=== PATIENT | female | born 1955 | race Caucasian/White ===

== ENCOUNTER 2020-05-14 03:27 | Inpatient (IN) ==
[2020-05-14 02:55] LABS: Hemoglobin 13.1 g/dL (11.5-15.4); Mean Corpuscular HGB Conc 32.8 g/dL (31.6-35.5); Mean Corpuscular Hemoglobin 30.2 pg (28.0-33.3); Mean Corpuscular Volume 92.2 fL (83.0-100.0); Mean Platelet Volume 12.6 fL (9.4-12.4); Platelet Count 209 K/mcL (140-400); Red Blood Count 4.34 M/mcL (3.82-4.97); White Blood Count 12.4 K/mcL (4.3-11.1)
[2020-05-14 03:00] LABS: INR 1.2; Prothrombin Time 13.8 Seconds (9.4-12.1)
[2020-05-14 03:15] LABS: Calcium 8.5 mg/dL (8.6-10.3); Magnesium 1.5 mg/dL (1.6-2.6); Phosphorous 3.8 mg/dL (2.7-4.5); Potassium 3.5 mEq/L (3.5-5.1); Troponin I 3.26 ng/mL (< 0.04)
[~2020-05-14 03:27] MED LIST: *HR* Heparin 5,000 UNIT/ML VIAL IVP ONE; *HR* Heparin 5,000 UNIT/ML VIAL IVP PRN; Acetaminophen 325 MG TABLET PO PRN; Ondansetron 4 MG/2 ML VIAL IVP PRN
[2020-05-14] MEDS ORDERED: *HR* Dextrose 50 % in Water (Vial) 50 ML VIAL IVP PRN (03:29)
[2020-05-14] MEDS ORDERED: Dextrose Gel 15 GM/37.5 ML TUBE PO PRN ×2 (03:29)
[2020-05-14] MEDS ORDERED: D5% in Water 1,000 ML IVC PRN (03:29)
[2020-05-14] MEDS ORDERED: Perflutren Lipid Microsphere 1.3 ML in 0.9 % Sodium Chloride 8.7 ML IVP PRN ×2 (03:39→12:03)
[2020-05-14 03:42] LABS: Albumin 3.6 g/dL (3.5-5.7); Albumin/Globulin Ratio 1.3 (1.1-2.2); Bilirubin,Direct 0.1 mg/dL (0.0-0.2); Bilirubin,Indirect 0.3 mg/dL (0.0-1.0); Bilirubin,Total 0.4 mg/dL (0.3-1.0); Globulin 2.7 g/dL (2.4-3.5); Total Protein 6.3 g/dL (6.4-8.9)
[2020-05-14] MEDS: Heparin 25,000UNIT/250ML 1/2NS 25,000 UNIT/250 ML IV.SOLN IVC SCH (04:07)
[2020-05-14 06:56] LABS: Chol/HDL Ratio 2.4 (0-4.9)
[2020-05-14 07:00] LABS: Estimated Average Glucose 134 mg/dl; Hemoglobin A1C 6.3 %
[2020-05-14] MEDS: Aspirin 81 MG TAB.CHEW PO SCH (07:49)
[2020-05-14] MEDS: Insulin LISPRO 300 UNITS/3 ML VIAL SUBQ SCH ×3 (07:49→17:18)
[2020-05-14 17:27] LABS: Potassium 3.9 mEq/L (3.5-5.1)
[2020-05-14] MEDS: *HR* Heparin 5,000 UNIT/ML VIAL IVP PRN (20:20)
[2020-05-15 02:40] LABS: Calcium 8.4 mg/dL (8.6-10.3); Potassium 3.8 mEq/L (3.5-5.1)
[2020-05-15 02:45] LABS: Troponin I 1.67 ng/mL (< 0.04)
[2020-05-15] MEDS: Insulin LISPRO 300 UNITS/3 ML VIAL SUBQ SCH ×3 (07:43→17:03)
[2020-05-15] MEDS: Aspirin 81 MG TAB.CHEW PO SCH (07:43)
[2020-05-15] MEDS: *HR* Heparin 5,000 UNIT/ML VIAL IVP PRN ×2 (10:13→22:13)
[2020-05-15] MEDS ORDERED: Nitroglycerin 1,000 MCG/10 ML VIAL IV ONE (10:24)
[2020-05-15] MEDS ORDERED: 0.9 % Sodium Chloride 1,000 ML ONE (10:24)
[2020-05-15] MEDS ORDERED: Heparin 1,000 UNITS/500 mL 500 ML ONE (10:24)
[2020-05-15] MEDS ORDERED: *HR* Heparin 10,000 UNIT/10 ML VIAL ONE (10:24)
[2020-05-15] MEDS ORDERED: ISOVUE-370 200 ML INFUS..BTL ONE (10:24)
[2020-05-15] MEDS: amLODIPine 5 MG TABLET PO SCH (10:26)
[2020-05-15] MEDS ORDERED: *HR* FentaNYL (PF) 100 MCG/2 ML VIAL ONE (10:41)
[2020-05-15] MEDS ORDERED: *HR* Midazolam HCl 2 MG/2 ML VIAL ONE (10:42)
[2020-05-15] MEDS: Heparin 25,000UNIT/250ML 1/2NS 25,000 UNIT/250 ML IV.SOLN IVC SCH (15:51)
[2020-05-15] MEDS: Nicotine 14 MG PATCH.TD24 TD SCH (15:52)
[2020-05-15] MEDS ORDERED: carvediloL 6.25 MG TABLET PO SCH (17:00)
[2020-05-15] MEDS: carvediloL 6.25 MG TABLET PO SCH (17:04)
[2020-05-16 01:55] LABS: Basophils # 0.1 K/mcL (0.0-0.2); Basophils % 0.5 %; Eosinophils # 0.2 K/mcL (0.0-0.6); Eosinophils % 2.4 %; Hematocrit 31.2 % (35.3-44.9); Hemoglobin 10.2 g/dL (11.5-15.4); Immature Granulocytes % 0.1 % (0-4); Immature Platelets 9.8 % (1.1-6.1); Lymphocytes # 2.5 K/mcL (0.6-4.6); Lymphocytes % 26.2 %; Mean Corpuscular HGB Conc 32.7 g/dL (31.6-35.5); Mean Corpuscular Hemoglobin 30.5 pg (28.0-33.3); Mean Corpuscular Volume 93.4 fL (83.0-100.0); Mean Platelet Volume 13.4 fL (9.4-12.4); Monocytes # 0.7 K/mcL (0.0-1.3); Monocytes % 7.7 %; Platelet Count 175 K/mcL (140-400); Red Blood Count 3.34 M/mcL (3.82-4.97); Segmented Neutrophils % 63.1 %; White Blood Count 9.5 K/mcL (4.3-11.1)
[2020-05-16 01:56] LABS: INR 1.1; Prothrombin Time 12.9 Seconds (9.4-12.1)
[2020-05-16 02:13] LABS: Calcium 8.6 mg/dL (8.6-10.3); Potassium 3.6 mEq/L (3.5-5.1)
[2020-05-16] MEDS: Nicotine 14 MG PATCH.TD24 TD SCH (07:25)
[2020-05-16] MEDS: Aspirin 81 MG TAB.CHEW PO SCH (07:26)
[2020-05-16] MEDS: Insulin LISPRO 300 UNITS/3 ML VIAL SUBQ SCH ×3 (07:26→16:30)
[2020-05-16] MEDS: amLODIPine 5 MG TABLET PO SCH (07:26)
[2020-05-16] MEDS: carvediloL 6.25 MG TABLET PO SCH ×2 (07:26→16:32)
[2020-05-16] MEDS ORDERED: Furosemide 40 MG/4 ML VIAL IVP ONE (07:54)
[2020-05-16] MEDS ORDERED: Gadolinium Contrast Agent (WT Based) IV PRN (09:28)
[2020-05-16] MEDS ORDERED: lisinopriL 20 MG TABLET PO SCH (10:30)
[2020-05-16] MEDS: Chlorhexidine Rinse 15 ML MOUTHWASH MM SCH (20:40)
[2020-05-17 01:14] LABS: Hematocrit 32.2 % (35.3-44.9); Hemoglobin 10.5 g/dL (11.5-15.4); Mean Corpuscular HGB Conc 32.6 g/dL (31.6-35.5); Mean Corpuscular Hemoglobin 30.4 pg (28.0-33.3); Mean Corpuscular Volume 93.3 fL (83.0-100.0); Mean Platelet Volume 12.5 fL (9.4-12.4); Platelet Count 162 K/mcL (140-400); Red Blood Count 3.45 M/mcL (3.82-4.97); Red Cell Distribution Width 12.2 % (11.5-14.5); White Blood Count 8.1 K/mcL (4.3-11.1)
[2020-05-17 01:37] LABS: Calcium 8.5 mg/dL (8.6-10.3); Potassium 3.7 mEq/L (3.5-5.1)
[2020-05-17] MEDS ORDERED: CeFAZolin Syr 2,000MG/20 ML 2,000 MG/20 ML SYRINGE IVPB ONE (07:00)
[2020-05-17] MEDS ORDERED: Insulin Human Regular 100 UNIT in 0.9 % Sodium Chloride 100 ML IV PRN (07:45)
[2020-05-17] MEDS ORDERED: Dextrose 50 % in Water (Vial) 30 ML, Sodium Bicarbonate 20 MEQ, Potassium Chloride 15 M... TH ONE (07:45)
[2020-05-17] MEDS ORDERED: Norepinephrine 4 MG in 0.9 % Sodium Chloride 250 ML IVC PRN (07:45)
[2020-05-17] MEDS ORDERED: Heparin 15,000 UNIT in 0.9 % Sodium Chloride 500 ML IV ONE (07:45)
[2020-05-17] MEDS ORDERED: Dextrose 50 % in Water (Vial) 30 ML, Sodium Bicarbonate 20 MEQ, Lidocaine 1% 5 ML, Insu... TH ONE ×3 (07:45)
[2020-05-17] MEDS: Chlorhexidine Rinse 15 ML MOUTHWASH MM SCH (07:50)
[2020-05-17] MEDS: Insulin LISPRO 300 UNITS/3 ML VIAL SUBQ SCH ×3 (07:50→16:26)
[2020-05-17] MEDS: Aspirin 81 MG TAB.CHEW PO SCH (08:03)
[2020-05-17] MEDS: Nicotine 14 MG PATCH.TD24 TD SCH (08:03)
[2020-05-17] MEDS ORDERED: SODIUM ZIRCONIUM CYCLOSILICATE 5 GM POWD.PACK PO ONE (13:36)
[2020-05-17] MEDS: *HR* Metoprolol 5 MG/5 ML VIAL IVP PRN (19:59)
[2020-05-17] MEDS ORDERED: *HR* Metoprolol 5 MG/5 ML VIAL IVP ONE (23:59)
[2020-05-18 03:24] LABS: Hematocrit 35.2 % (35.3-44.9); Hemoglobin 11.4 g/dL (11.5-15.4); Mean Corpuscular HGB Conc 32.4 g/dL (31.6-35.5); Mean Corpuscular Hemoglobin 29.7 pg (28.0-33.3); Mean Corpuscular Volume 91.7 fL (83.0-100.0); Platelet Count 189 K/mcL (140-400); Red Blood Count 3.84 M/mcL (3.82-4.97); Red Cell Distribution Width 12.2 % (11.5-14.5); White Blood Count 8.2 K/mcL (4.3-11.1)
[2020-05-18 03:43] LABS: Calcium 8.5 mg/dL (8.6-10.3); Potassium 3.9 mEq/L (3.5-5.1)
[2020-05-18] MEDS: *HR* Metoprolol 5 MG/5 ML VIAL IVP PRN ×2 (04:32→11:37)
[2020-05-18] MEDS: Insulin LISPRO 300 UNITS/3 ML VIAL SUBQ SCH ×3 (07:20→16:31)
[2020-05-18] MEDS: Nicotine 14 MG PATCH.TD24 TD SCH (07:27)
[2020-05-18] MEDS: Aspirin 81 MG TAB.CHEW PO SCH (07:27)
[2020-05-18] MEDS ORDERED: *HR* Metoprolol 5 MG/5 ML VIAL IVP ONE (13:24)
[2020-05-18] MEDS: lisinopriL 20 MG TABLET PO SCH (14:58)
[2020-05-18] MEDS ORDERED: carvediloL 6.25 MG TABLET PO SCH (15:00)
[2020-05-18] MEDS: Isosorbide MONOnitrate (24 HR) 30 MG TAB.ER.24H PO SCH (16:31)
[2020-05-18] MEDS: Spironolactone 25 MG TABLET PO SCH (16:31)
[2020-05-18] MEDS: carvediloL 6.25 MG TABLET PO SCH (20:22)
[2020-05-18] MEDS: Apixaban 5 MG TABLET PO SCH (20:22)
[2020-05-19 02:11] LABS: Basophils # 0.1 K/mcL (0.0-0.2); Basophils % 0.6 %; Eosinophils # 0.2 K/mcL (0.0-0.6); Eosinophils % 2.8 %; Hematocrit 33.1 % (35.3-44.9); Hemoglobin 10.7 g/dL (11.5-15.4); Immature Granulocytes % 0.4 % (0-4); Lymphocytes # 2.5 K/mcL (0.6-4.6); Lymphocytes % 31.4 %; Mean Corpuscular HGB Conc 32.3 g/dL (31.6-35.5); Mean Corpuscular Hemoglobin 30.2 pg (28.0-33.3); Mean Corpuscular Volume 93.5 fL (83.0-100.0); Mean Platelet Volume 12.7 fL (9.4-12.4); Monocytes # 0.7 K/mcL (0.0-1.3); Monocytes % 8.7 %; Neutrophils # 4.5 K/mcL (1.6-8.9); Platelet Count 190 K/mcL (140-400); Red Blood Count 3.54 M/mcL (3.82-4.97); Red Cell Distribution Width 12.1 % (11.5-14.5); Segmented Neutrophils % 56.1 %; White Blood Count 7.9 K/mcL (4.3-11.1)
[2020-05-19 02:30] LABS: Calcium 8.4 mg/dL (8.6-10.3); Magnesium 1.7 mg/dL (1.6-2.6); Potassium 4.1 mEq/L (3.5-5.1)
[2020-05-19] MEDS: Isosorbide MONOnitrate (24 HR) 30 MG TAB.ER.24H PO SCH (07:28)
[2020-05-19] MEDS: lisinopriL 20 MG TABLET PO SCH (07:28)
[2020-05-19] MEDS: Apixaban 5 MG TABLET PO SCH ×2 (07:28→19:31)
[2020-05-19] MEDS: Nicotine 14 MG PATCH.TD24 TD SCH (07:28)
[2020-05-19] MEDS: Insulin LISPRO 300 UNITS/3 ML VIAL SUBQ SCH ×3 (07:29→16:34)
[2020-05-19] MEDS: carvediloL 6.25 MG TABLET PO SCH ×2 (07:30→19:32)
[2020-05-19] MEDS: Spironolactone 25 MG TABLET PO SCH (07:30)
[2020-05-19] MEDS ORDERED: lisinopriL 10 MG TABLET PO ONE (16:08)
[2020-05-19 17:38] LABS: Influenza A PCR Negative (Negative); Influenza B PCR Negative (Negative); Resp. Syncytial Virus PCR Negative (Negative); SARS-CoV-2 by PCR (In House) Negative (Negative)
[2020-05-20 01:07] LABS: Basophils # 0.1 K/mcL (0.0-0.2); Basophils % 0.7 %; Eosinophils # 0.3 K/mcL (0.0-0.6); Eosinophils % 2.7 %; Hematocrit 35.7 % (35.3-44.9); Hemoglobin 11.6 g/dL (11.5-15.4); Immature Granulocytes % 0.4 % (0-4); Lymphocytes % 31.5 %; Mean Corpuscular HGB Conc 32.5 g/dL (31.6-35.5); Mean Corpuscular Hemoglobin 29.9 pg (28.0-33.3); Mean Platelet Volume 12.6 fL (9.4-12.4); Monocytes # 0.7 K/mcL (0.0-1.3); Monocytes % 7.5 %; Neutrophils # 5.5 K/mcL (1.6-8.9); Platelet Count 218 K/mcL (140-400); Red Blood Count 3.88 M/mcL (3.82-4.97); Red Cell Distribution Width 12.3 % (11.5-14.5); Segmented Neutrophils % 57.2 %; White Blood Count 9.7 K/mcL (4.3-11.1)
[2020-05-20 01:29] LABS: Calcium 8.8 mg/dL (8.6-10.3); Potassium 4.3 mEq/L (3.5-5.1)
[2020-05-20] MEDS: Insulin LISPRO 300 UNITS/3 ML VIAL SUBQ SCH ×2 (07:26→11:13)
[2020-05-20] MEDS: carvediloL 6.25 MG TABLET PO SCH (07:30)
[2020-05-20] MEDS: Isosorbide MONOnitrate (24 HR) 30 MG TAB.ER.24H PO SCH (07:34)
[2020-05-20] MEDS: Nicotine 14 MG PATCH.TD24 TD SCH (07:35)
[2020-05-20] MEDS: Apixaban 5 MG TABLET PO SCH (07:35)
[2020-05-20] MEDS: Spironolactone 25 MG TABLET PO SCH (07:35)
[2020-05-20] MEDS ORDERED: carvediloL 6.25 MG TABLET PO SCH (08:30)
[2020-05-20] MEDS ORDERED: Isosorbide MONOnitrate (24 HR) 30 MG TAB.ER.24H PO SCH (09:00)
[2020-05-20] MEDS ORDERED: lisinopriL 20 MG TABLET PO SCH ×3 (09:00)
[2020-05-20 11:06] VITALS: BP 156/70
== END 2020-05-20 14:01 | DRG 280 ==
LOC: 2NNU → SUATTDRO 03:27
PROVIDERS: ADMIT Internal Medicine; ATTEND Internal Medicine